=== PATIENT | female | born 1955 | race Caucasian/White ===

== ENCOUNTER 2020-07-07 08:00 | Outpatient (CLI) | payer MEDICARE, SELFPAY ==
--- NOTE | ~2020-07-07 | MM_ITS ---
EXAMINATION: MM screening [facility] BI w ольга HISTORY: Screening mammogram TECHNIQUE: Craniocaudal and mediolateral oblique 3-D tomosynthesis images were obtained and synthetic 2-D images were generated. CAD analysis was submitted and interpreted. COMPARISON: 06/29/2019, 07/31/2011 BREAST PARENCHYMAL COMPOSITION: There are scattered areas of fibroglandular density. FINDINGS: RIGHT BREAST: There is no evidence of suspicious mass, calcification, or architectural distortion to suggest malignancy. There has been no significant interval change. LEFT BREAST: A possible mass is present in the middle third of the outer breast best appreciated 8 cm from the nipple on the craniocaudal view. IMPRESSION: 1. Possible left breast mass. 2. Additional mammographic views and possible breast ultrasound are recommended. BI-RADS Category 0: Incomplete: Needs additional imaging evaluation. Reviewed, dictated and finalized at location A. [employer] IMPRESSION: 1. Possible left breast mass. 2. Additional mammographic views and possible breast ultrasound are recommended . BI-RADS Category 0: Incomplete: Needs additional imaging evaluation.
== END 2020-07-07 08:01 | disposition home or self-care (01) ==
LOC: ANHIMG 08:05
PROVIDERS: PCP Student in an Organized Health Care Education/Training Program; Visit Provider Student in an Organized Health Care Education/Training Program
DX: Z12.31 Encounter for screening mammogram for malignant neoplasm of breast (principal); R92.8 Other abnormal and inconclusive findings on diagnostic imaging of breast
CPT/HCPCS: 77063; 77067

== ENCOUNTER 2020-08-03 13:23 | Outpatient (CLI) | payer MEDICARE, SELFPAY ==
--- NOTE | ~2020-08-03 | MMUS_ITS ---
EXAMINATION: MM diagnostic mammo unilat LT, US breast LT limited HISTORY: Possible left breast mass on screening mammogram TECHNIQUE: Additional 3-D tomosynthesis images of the left breast were performed and synthetic 2-D im ages were generated. CAD analysis was submitted and interpreted. High resolution limited left breast ultrasound was performed. COMPARISON: 07/07/2020, 06/29/2019, 07/31/2011 FINDINGS: MAMMOGRAPHIC FINDINGS: No mass, calcification, or architectural distortion are identified. There is been no suspicious inter sharri change. ULTRASOUND: There is no evidence of focal abnormal solid or cystic lesion in the vicinity of the mammographic fin ding in question. IMPRESSION: 1. No mammographic or sonographic evidence of malignancy. 2. Recommend routine screening mammography in one year. BI-RADS Category 1: Negative Reviewed, dictated and finalized at location A. [place] SUPPORT SPECIALIST IMPRESSION: 1. No mammographic or sonographic evidence of malignancy. 2. Recommend routine screening mammography in one year. BI-RADS Category 1: Negative
== END 2020-08-03 13:24 | disposition home or self-care (01) ==
LOC: ANHIMG 13:24
PROVIDERS: PCP Student in an Organized Health Care Education/Training Program; Visit Provider Student in an Organized Health Care Education/Training Program
DX: N63.20 Unspecified lump in the left breast, unspecified quadrant (principal); R92.8 Other abnormal and inconclusive findings on diagnostic imaging of breast
CPT/HCPCS: 76642; 77065

== ENCOUNTER 2024-12-06 08:38 | Outpatient (CLI) | payer MEDICARE, SELFPAY ==
--- NOTE | ~2024-12-06 | DEXA_ITS ---
Bone Density Report Name: ALLIE SWEET Age: 69 Sex: Female Ethnicity: White Date of : 1955 Indication: osteopenia; hysterectomy; Referring Provider: JEZ, ALLISON Study: Bone densitometry was performed. Exam Date: December 06, 2024 Accession number: [id number] Bone Density: Region BMD T-score Z-score Classification AP Spine(L1-L4) 0.889 -1.4 0.8 Osteopenia Femoral Neck (Left) 0.646 -1.8 0.1 Osteopenia Total Hip (Left) 0.863 -0.7 0.9 Normal Femoral Neck (Right) 0.653 -1.8 0.1 Osteopenia Total Hip (Right) 0.815 -1.0 0.6 Normal Total Hip Mean 0.839 -0.9 0.8 Normal World Health Organization criteria for BMD impression classify patients as: Normal (T-score at or above -1.0), Osteopenia (T-score between -1.0 and -2.5), or Osteoporosis (T-score at or below -2.5). 10-year Fracture Risk(1): Major Osteoporotic Fracture 11% Hip Fracture 2.1% Reported Risk Factors: [place] (), Neck BMD=0.646, BMI=29.6 (1) FRAX(R) Version 3.08. Fracture probability calculated for an untreated patient. Fracture probability may be lower if the patient has received treatment. Previous Exams: Region Exam Age BMD T-score BMD Change BMD Change Date g/cm2 vs Baseline vs Previous AP Spine (L1-L4) 12/06/2024 69 0.889 -1.4 -0.003 (-0.3%) -0.003 (-0.3%) 06/29/2019 64 0.892 -1.4 Total Hip(Left) 12/06/2024 69 0.863 -0.7 -0.010 (-1.2%) -0.010 (-1.2%) 06/29/2019 64 0.873 -0.6 Total Hip(Right) 12/06/2024 69 0.815 -1.0 -0.081 (-9.0%) -0.081 (-9.0%) 06/29/2019 64 0.896 -0.4 *Denotes significance at 95% confidence level, LSC for AP Spine = 0.022 g/cm2, LSC for Total Hip = 0.027 g/cm2 # Denotes dissimilar scan types or analysis methods Clinical Information Provided by Patient: Has used the following medications: Vitamin D, Calcium Has the following medical conditions: Hysterectomy Patient maximum height was 63 Menopause Age: 43 Drinks caffeinated beverages Onset of menses at age 9 Number of children 1 Impression: The patient has low bone mass, based on the Left Femoral Neck T-score. The patient has an estimated ten-year risk of hip fracture of 2.1% and an estimated ten-year risk of major fracture of 11%, based on the WHO FRAX algorithm. No significant bone loss was observed. Discussion: BONE DENSITY IS LOW AT ONE OR MORE SKELETAL SITES. This patient's lowest T-score is low at one or more skeletal sites. It meets the World Health Organization's (WHO) criteria for ?low bone mass? (T-score between -1.0 and -2.5). The patient's 10-year risk of fracture as calculated by FRAX is less than the threshold where pharmacological therapy is recommended by the National Osteoporosis Foundation (NOF). However, all treatment decisions require clinical judgment and consideration of individual patient factors, including patient preferences, comorbidities, previous drug use, risk factors not captured in the FRAX model (e.g., frailty, falls, vitamin D deficiency, increased bone turnover, interval significant decline in bone density) and possible under or overestimation of fracture risk by FRAX. The patient should follow a healthful lifestyle (good nutrition with adequate calcium and vitamin D, and appropriate weight-bearing exercise). Follow-Up: Consider repeating this study in 2 to 3 years to reassess this patient's status, or sooner if there is some new clinical indication. Reported by: JOESPH on 12/06/2024 9:23:00 AM. Reviewed, dictated and finalized at location AFifi GARCIA
--- NOTE | ~2024-12-06 | MM_ITS ---
EXAMINATION: MM screening [facility] BI w ольга HISTORY: Screening TECHNIQUE: Craniocaudal and mediolateral oblique 3-D tomosynthesis images were obtained and synthetic 2-D images were generated. CAD analysis was submitted and interpreted. COMPARISON: 08/03/2020 and dating back to 07/31/2011 BREAST PARENCHYMAL COMPOSITION: There are scattered areas of fibroglandular density. FINDINGS: Redemonstration of a 4 mm intramammary lymph node within the lower inner right breast, stab le dating back to 2010, waxing and waning in size. Punctate calcifications are detected bilaterally, stable and benign in appearance. Stable parenchymal pattern without suspicious microcalcifications, architectural distortion, discrete masses or significant asymmetry. IMPRESSION: 1. No mammographic evidence of malignancy. 2. Recommend routine screening mammography in one year. BI-RADS Category 2: Benign finding(s). Reviewed, dictated and finalized at location A.
--- OUTSIDE RECORDS SUMMARY | 2024-12-06 09:20 | XMS_ITS | Clinical Summary ---
Author Organization [facility] Address [facility] [place] [address] Care Team Providers Care Due Diligence Coordinator Name Role Phone Sunny Johnson DO Primary Care Provider + Allergies No known active allergies Medications Multiple Vitamins-Minerals (WOMENS MULTI GUMMIES OR) Active Active Problems Problem Noted Date Diagnosed Date Closed nondisplaced transver se fracture of right patella with routine healing 07/22/2023 Closed nondisplaced transver se fracture of right patella, initial encounter 06/19/2023 Hyperlipidemia 10/26/2020 Osteopenia of multiple sites 07/11/2019 Encounters Date Type Department Care Team Description 12/03/2024 Telephone [facility] Family & Internal Medicine [place] [address] [place] [address] Sunny Johnson DO Error 11/13/2024 MyChart Message Enc [facility] Family & Internal Medicine [address] [place] [address] Sunny Johnson, DO MAMMOGRAM/BONE DENSITY from Last 3 Months Immunizations Immunization Administration Dates Next Due Fluad influenza vaccine, Omari drivalent (aIIV4), Inactivated, adjuvanted, preservative free, 0.5 mL,IM use 07/09/2023 Fluzone High Dose - >Age 65 (Prefilled Syringe) 06/03/2024,06/07/2022,06/06/2021,2019 Influenza Adult (Generic) 06/02/2019 Pneumococcal (Pneumovax 23) 06/07/2020 Pneumococcal (Prevnar 13) 06/02/2019 Shingrix 12/10/2023,07/23/2023 Tdap (Generic) 07/18/2016 Family History Medical History Relation Comments Diabetes Brother Stroke Brother Arthritis Father CHF Father Heart Disease Father Stroke Father Anemia Mother Pernicious Arthritis Mother Hypertension Mother Stroke Mother Thyroid Mother cerebral hemorrhage Mother Thyroid Sister 1 Arthritis Sister 2 COPD Sister 2 Relation Status Comments Brother Father Mother Sister 1 Sister 2 Social History Tobacco Use Types Packs/Day Years Used Date Smoking Tobacco: Never Smokeless Tobacco: Never Tobacco Cessation:Counseling Given: Not Answered Comments:na Alcohol Use Standard Drinks/Week Comments Yes 0 (1 standard drink = 0.6 oz pur e alcohol) Very rarely AUDIT-C Answer Date Recorded Frequency of Alcohol Consumption Monthly or less 06/02/2019 Average Number of Drinks 1 or 2 019 Frequency of Binge Drinking Not on file 05/18 PHQ-2 Answer Date Recorded Patient Health Questionnaire-2 Score 0 05/05/2024 Comments No Sex and Gender Information Value Date Recorded Sex Assigned at Not on file Legal Sex Female 3:32 PM CDT Gender Identity Not on file Sexual Orientation Not on file Occupation Industry Job Start Date Job End Date Not on file Not on file Not on file Not on file Last Filed Vital Signs Vital Sign Reading Time Taken Comments Blood Pressure 136/88 05/05/2024 8:15 AM CDT Pulse 73 05/05/2024 8:15 AM CDT Temperature 36.4 C (97.5 F) 05/05/2024 8:15 AM CDT Respiratory Rate 16 05/05/2024 8:15 AM CDT Oxygen Saturation 98% 05/05/2024 8:15 AM CDT Inhaled Oxygen Concentration - - Weight 72.5 kg (159 lb 12.8 oz) 05/05/2024 8:15 AM CDT Height 160 cm (5' 3 ) 05/05/2024 8:15 AM CDT Body Mass Index 28.31 05/05/2024 8:15 AM CDT Plan of Treatment Upcoming Encounters Date Type Department Care Team (Late st Contact Info) Description 12/22/2024 8:00 AM CDT Office Visit [facility] Family & Internal Medicine - [place] [address] [place] [phone] Sunny Johnson DO [address] [place] [address] Health Maintenance Due Date Last Done Comments Annual Medicare Wellness Visit 2018 Dexa Scan (General) 06/29/2021 06/29/2019 Mammogram Screening 08/03/2022 08/03/2020, 07/07/2020, 06/29/2019, Additional history exists COVID-19 Vaccine ( season) 2024 08/16/2023, 08/14/2022, 07/04/2021, Additional history exists PHQ-2 (Physician [place]) 08/18/2024 05/05/2024 Colorectal Cancer Screening Colonoscopy (10 Years) 03/22/2026 03/22/2016 RSV Immunization or 60+ Years (1 - 1-dose 75+ series) 2028 DTaP, Tdap and Td Vaccines (2 - Td or Tdap) 08/14/2029 07/18/2016 Postponed from 07/18/2026 (Per Provider Recommendation) Hepatitis C Completed 06/02/2019 Pneumococcal Vaccine: 50+ Years Completed 06/07/2020, 06/02/2019 Zoster Vaccines Completed 12/10/2023, 07/23/2023 Meningococcal B Vaccine Aged Out No l onger eligible based on patient's age to complete this topic Meningococcal Vaccine Aged Out No kaylynn jasmyn eligible based on patient's age to complete this topic RSV Immunizations Under 20 Months Aged Out No longer eligible based on patient's age to complete this topic Procedures Procedure Name Priority Date/Time Associated Diagnosis Comments MAMMOGRAM GENERIC (SCAN ORDER) 08/03/2020 BONE DENSITY GENERIC (SCAN ORDER) Routine 06/29/2019 HEPATITIS C ANTIBODY Routine 06/02/2019 10:11 AM CDT Need for hepatitis C screening test COLONOSCOPY/EGD GENERIC (SCAN ORDER) Routine 03/22/2016 from Last 3 Months or Most Recently Relevant to Health Maintenance Results * MAMMOGRAM GENERIC (08/03/2020) Anatomical Region Laterality Modality Other 08/03/2020 Narrative 08/03/2020 Ordered by an unspecified provider. us Documents Scanned SCANNING Final Result * BONE DENSITY (06/29/2019) Anatomical Region Laterality Modality Other us Documents Scanned SCANNING Edited Result - Final * HEPATITIS C ANTIBODY (06/02/2019 10:11 AM CDT) HEPATITIS C AB NON-REACT EULOGIO NON-REACT EULOGIO [facility] SIGNAL TO CUTOFF 0.02 <1.00 [facility] Comment: HCV antibody was non-reactive. There is no laboratory evidence of HCV infection. In most cases, no further action is required. However, if recent HCV exposure is suspected, a test for HCV RNA (test code 64626) is suggested. For additional information please refer to http://education.Medicine in Practice/faq/GRY99w7 (This link is being provided for informational/ educational purposes only.) 06/02/2019 10:1 1 AM CDT 06/03/2019 5:14 AM CDT Narrative Resulting Agency Comment Performing Organization Information: Site ID: [place] Name: [facility] Address: [address] [place], [place] [address] [address] Director: Wei Marquez D.O., MPH us Sunny Johnson DO LABORATORY Final Re sult [facility] * COLONOSCOPY/EGD (03/22/2016) us Documents Scanned SCANNING Edited Result - Final from Last 3 Months or Most Recently Relevant [place] [id number] [facility] Care Teams Due Diligence Coordinator Relationship Specialty Start Date End Date Sunny Johnson DO [address] [place] [address] PCP - General FAMILY PRACTICE 06/02/19
--- OUTSIDE RECORDS SUMMARY | 2024-12-06 09:21 | XMS_ITS | Encounter Summary ---
Author Organization [facility] Address [facility] [place] [address] Care Team Providers Care Quality Assurance Tech Name Role Phone Sunny Johnson DO Primary Care Provider + Encounter Details Date Type Department Care Team (Late st Contact Info) Description 05/18/2024 Ancestryt Message Enc [facility] Family & Internal Medicine [facility] [address] [place] [address] Sunny Johnson DO [address] [place] [address] MG SCREENING/BONE DENSITY Orders Social History Tobacco Use Types Packs/Day Years Used Date Smoking Tobacco: Never Smokeless Tobacco: Never Comments:na Alcohol Use Standard Drinks/Week Comments Yes [...] file Not on file Not on file documented as of this encounter Plan of Treatment Upcoming Encounters Date Type Department Care Team (Late st Contact Info) Description 12/22/2024 8:00 AM CDT Office Visit [facility] Family & Internal Medicine - [address] [phone] Sunny Johnson DO [address] [place] [address] documented as of this encounter Visit Diagnoses Not on filedocumented in this encounter Additional Health Concerns Assessment Noted Time PHQ-9 Depression Total Score: 1 06/02/20 19 10:12 AM CDT documented as of this encounter Care Teams Quality Assurance Tech Relationship Specialty Start Date End Date Sunny Johnson DO [address] [place] [phone] PCP - General FAMILY PRACTICE 06/02/19 documented as of this encounter
== END 2024-12-06 08:39 | disposition home or self-care (01) ==
LOC: ANHIMG 08:42
PROVIDERS: PCP Student in an Organized Health Care Education/Training Program; Visit Provider Student in an Organized Health Care Education/Training Program
DX: Z12.31 Encounter for screening mammogram for malignant neoplasm of breast (principal); Z78.0 Asymptomatic menopausal state; M85.88 Other specified disorders of bone density and structure, other site; M85.852 Other specified disorders of bone density and structure, left thigh; M85.851 Other specified disorders of bone density and structure, right thigh
CPT/HCPCS: 77063; 77067; 77080